=== PATIENT | female | born 1995 | race American Indian/Alaskan Native ===

== ENCOUNTER 2017-08-01 22:14 | Emergency (ER) | payer SELFPAY ==
[2017-08-01 22:20] VITALS: BP 124/74
== END 2017-08-02 02:30 ==
LOC: ED 22:14
DX: R10.30 Lower abdominal pain, unspecified (principal); Z53.21 Procedure and treatment not carried out due to patient leaving prior to being seen by health care provider

== ENCOUNTER 2019-03-28 11:47 | Emergency (ER) | payer OTHER ==
[2019-03-28] MEDS ORDERED: TORADOL IM ONE (12:19)
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
[2019-03-28 13:44] LABS: HCG Qualitative,Urine Negative (Negative)
[2019-03-28 15:05] VITALS: BP 103/56
[2019-03-28] MEDS ORDERED: ULTRAM PO ONE (15:13)
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
== END 2019-03-28 15:57 | disposition home or self-care (01) ==
LOC: ED 11:47
DX: S16.1XXA Strain of muscle, fascia and tendon at neck level, initial encounter (principal); F41.9 Anxiety disorder, unspecified; J45.909 Unspecified asthma, uncomplicated; Z79.1 Long term (current) use of non-steroidal anti-inflammatories (NSAID); V49.49XA Driver injured in collision with other motor vehicles in traffic accident, initial encounter; Y93.89 Activity, other specified; Y92.89 Other specified places as the place of occurrence of the external cause; Y99.8 Other external cause status
CPT/HCPCS: 72040; 72100; 81025; 96372; 99284; J1885